=== PATIENT | male | born 1995 | race Two or more races ===

== ENCOUNTER 2016-08-22 09:41 | Emergency (ER) | payer MEDICAID ==
[~2016-08-22] VITALS: Ht 160 cm; Wt 58.1 kg
[2016-08-22 10:29] VITALS: BP 120/72
[2016-08-22] MEDS ORDERED: cefTRIAXone SOD 1,000 MG VL IM ONE (10:45)
== END 2016-08-22 11:12 | disposition home or self-care (01) ==
LOC: ER 09:42
DX: J20.9 Acute bronchitis, unspecified (principal); J02.9 Acute pharyngitis, unspecified
CPT/HCPCS: 96372; 99283; J0696